=== PATIENT | male | born 1955 | race Caucasian/White ===

== ENCOUNTER → 2017-03-04 | Outpatient (CLI) | payer OTHER ==
[~2017-03-04] MED LIST: ASPI325T PO; ISOS30TA6 PO; METO-275 PO; NITR0.4T39 SL
--- NOTE | 2017-03-04 09:42 | DI ---
Indication: ITS.REASON: R41.3 MEMORY LOSS PROCEDURE: MRI BRAIN W/O CONTRAST: Encounter: Initial Comparisons: None. Technique: Multiplanar, multisequence, MR imaging of the head without contrast was acquired. FINDINGS: The ventricles are of normal size, shape, and contour for the patient's age. There are small nonspecific punctate areas of T2-weighted and T2 FLAIR weighted signal abnormality in the deep frontoparietal white matter that most likely represent small vessel ischemic disease. This is of a degree that is slightly advanced for the patient's age. Additionally there two larger areas of gyral T2/FLAIR hyperintensity, one within the left frontal lobe seen on axial images 21 and 22 and the other in the left postcentral gyrus of the parietal lobe as seen on axial image #21. These lesions measure up to 1.9 cm in maximal diameter and are larger than the typical microvascular ischemic white matter lesion. The brain stem, cerebellum, and cerebral hemispheres otherwise have a normal morphologic appearance as well as MR signal intensity on all pulse sequences. There are no areas of restricted diffusion on diffusion weighted imaging to suggest an acute infarct. There is no evidence of an intracranial hemorrhage, or hydrocephalus. The visualized portions of the orbits, calvarium, paranasal sinuses, and skull base demonstrate no significant abnormality. IMPRESSION: No acute infarct. Multifocal white matter disease, slightly advanced for the patient's age along with two more focal lesions in the left cerebral hemisphere. I recommend a postcontrast MR exam for further evaluation of these areas. Differential considerations include subacute or chronic infarct with encephalomalacia, demyelinating lesion, prior trauma or less likely neoplasm. .
== END ==
LOC: IMA 07:16
PROVIDERS: ATTEND Family Medicine
DX: G93.89 Other specified disorders of brain (principal); R90.82 White matter disease, unspecified; R41.3 Other amnesia